=== PATIENT | female | born 2000 | race Caucasian/White ===

== ENCOUNTER 2023-04-05 15:51 | Outpatient (CLI) | payer OTHER, SELFPAY ==
[2023-04-05 15:59] LABS: Strep A Quick* Negative (Negative)
[2023-04-05 17:13] LABS: Strep A DNA Probe* NOT DETECTED (Not Detectd)
== END 2023-04-05 15:52 | disposition home or self-care (01) ==
PROVIDERS: Visit Provider Registered Nurse
DX: J02.9 Acute pharyngitis, unspecified (principal)
CPT/HCPCS: 87651

== ENCOUNTER 2023-04-10 03:49 | Day surgery (SDC) | payer OTHER, SELFPAY ==
[2023-04-10] VITALS (26 sets, daily range): BP systolic 91–114; BP diastolic 58–78; PULSE 78–101; RESP 14–20; TEMP 36.7–37.7; O2SAT 95–100; BMI 22.7
--- NOTE | 2023-04-10 03:59 | ED.GENADULT ---
HPI - General Adult General Chief complaint: Shortness of Breath/Dyspnea Stated complaint: [place]/Tonsilitis Time Seen by Provider: 04/10/23 03:59 History of Present Illness HPI narrative: Pt aox4, ABCs intact. Pt currently being treated with steroid for mono and tonsilitis. Patient states that she has been having difficulty breathing and swallowing since 0000 tonight. Patient states that she was advised to come to the ED if her Uvula got enlarged or went off to one side as well as if her throat swelling got worse. 22-year-old woman presenting to the emergency department with concern of worsening throat pain and swelling. Had for symptoms of what was ultimately diagnosed as mononucleosis and tonsillitis beginning almost 3 weeks ago. Five days ago started to have some throat pain. Seen 3 days ago and initiated on 20 mg daily of prednisone. Seen a day ago and prescribed Tylenol with codeine. She has not had any fever. Pain is definitely worse from yesterday to today. She had called in was advised apparently if she had uvular deviation to be seen. She is unsure which way her uvula was pointing. Definitely hurts to open her mouth she says and ?can not swallow?; this is referring to water even. She has not been having any sensation of abdominal fullness or pain. Related Data Home Medications Medication Instructions Recorded Confirmed albuterol sulfate 90 mcg/actuation 1 inh inhalation Q4-6H PRN 04/05/23 04/09/23 breath activated powder inhaler cetirizine 10 mg tablet (Zyrtec) 10 mg PO QDAY PRN 04/05/23 04/09/23 drospirenone 3 mg-ethinyl 1 tab PO DAILY 04/05/23 04/09/23 estradiol 0.02 mg tablet (STEVE (28)) Previous Rx's Medication Instructions Recorded prednisone 20 mg tablet 20 mg PO QDAY 5 days #5 tabs 04/07/23 acetaminophen 300 mg-codeine 30 mg 1 tab PO Q8H PRN pain #10 tabs 04/09/23 tablet Allergies Allergy/AdvReac Type Severity Reaction Status Date / Time No Known Drug Allergies Allergy Verified 04/09/23 14:21 Review of Systems Status of ROS: Reports: 6 or more systems reviewed and unremarkable except as noted in History and below [facility] Medical History Infectious mononucleosis ?B27.90 - Infectious mononucleosis, unspecified without complication (ICD-10) Social History Smoking Status: Never smoker Do you use any of these nicotine containing products: None How often do you have a drink containing alcohol: monthly or less AUDIT-C Alcohol total score: 1 Non-prescribed substance use: denies use Exam Narrative: Exam Narrative: Slim. Looks pale. Skin otherwise warm and dry without rash. Breathing easily. Demonstrating trismus in conversation. I do not hear any stridor. Lungs appear to be clear. Oropharynx is moist. There is moderate tonsillar enlargement/edema on the right more so than the left. Uvula was touching at times the right tonsil. She is able to manage her secretions. I do not appreciate much in the way of anterior cervical lymphadenopathy. Fullness in the right upper anterior cervical chain more so on the right than the left. There is some posterior chain lymphadenopathy on the right more so than the left. Heart in regular rate and rhythm without murmur rub or gallop. Abdomen is soft nontender no HSM. Well-perfused peripherally without edema. Const: Vital Signs, click to edit/add: Vital Signs - 24 hr 04/10/23 03:57 04/10/23 04:02 04/10/23 04:15 Temperature 99.9 F H Pulse Rate 78 84 Pulse Rate [Pulse Oximeter] 87 Respiratory Rate 20 Blood Pressure [Ri ght Upper Arm] 91/58 L Pulse Oximetry 98 98 100 Oxygen Delivery Me thod Room Air 04/10/23 04:30 04/10/23 04:51 04/10/23 05:00 Temperature Pulse Rate 87 99 91 Pulse Rate [Pulse Oximeter] Respiratory Rate Blood Pressure [Ri ght Upper Arm] Pulse Oximetry 98 98 98 Oxygen Delivery Me thod 04/10/23 05:15 04/10/23 05:30 Temperature Pulse Rate 101 H 91 Pulse Rate [Pulse Oximeter] Respiratory Rate Blood Pressure [Ri ght Upper Arm] Pulse Oximetry 97 97 Oxygen Delivery Me thod Documenting provider has reviewed patient's vital signs: yes Course Vital Signs Vital signs: Initial Vital Signs Temperature 99.9 F H 04/10/23 03:57 Temperature Source Temporal Artery Scan 04/10/23 03:57 Pulse Rate 87 10/04/23 03:57 Respiratory Rate 20 04/10/23 03:57 Blood Pressure 91/58 L 04/10/23 03:57 Blood Pressure Mean 69 L 04/10/23 03:57 Pulse Oximetry 98 04/10/23 03:57 Oxygen Delivery Method Room Air 04/10/23 03:57 Vital Signs Temperature 99.9 F H 04/10/23 03:57 Pulse Rate 87 04/10/23 03:57 Respiratory Rate 20 04/10/23 03:57 Blood Pressure 91/58 L 04/10/23 03:57 Pulse Oximetry 98 04/10/23 03:57 Oxygen Delivery Method Room Air 04/10/23 03:57 Temperature 99.9 F H 04/10/23 03:57 Pulse Rate 91 04/10/23 05:30 Respiratory Rate 20 04/10/23 03:57 Blood Pressure 91/58 L 04/10/23 03:57 Pulse Oximetry 97 04/10/23 05:30 Oxygen Delivery Method Room Air 04/10/23 03:57 Medical Decision Making MDM Narrative Medical decision making narrative: I see a tonsillitis here certainly. Patti tells me that the swelling has been present consistently as is on this right side. More impressive I think is the trismus. She may have evolving phlegmonous tissue though based on appearance I think less likely rey abscess at this point; however trismus is concerning. This is her 3rd visit now and she is describing worsening symptoms; will also image with CT scan. Surely she is dehydrated to some degree. IV will be placed and will receive a L of normal saline as well hydrate secondary to contrast. If there is abscess or other requiring intervention would need to have some blood work so we will check this as well. Ketorolac and Solu-Medrol. CT scan by my read shows a couple of cm of rim enhancing fluid collection consistent with evolving abscess in the peritonsillar area adjacent to the right tonsil. There also appears to be some phlegmonous change within the tonsil. Radiology over-read as below TECHNIQUE: CT soft tissue of the neck was acquired with 95 mL Isovue 370 IV contrast. COMPARISON: None. PRELIMINARY FINDINGS: Skull base: Unremarkable. Pharynx/Larynx/Trachea: 1.9 cm (series 5; image 52) rim enhancing hypodensity (24 HU on 3; 16) lateral right peritonsillar abscess. Bilateral tonsillar enlargement and heterogeneous enhancement consistent with tonsillitis. Associated bilateral proximal deep cervical chain (level IIa/b) lymphadenopathy. Prominent bilateral lateral pharyngeal lymph nodes. The right internal jugular vein is patent. Epiglottis is normal. Airway is patent. Adjacent soft tissues are normal. Salivary glands: Unremarkable. Thyroid gland: Unremarkable. No significant nodules. Lymph nodes: No lymphadenopathy. Vessels: Unremarkable for age. Bones: Unremarkable for age. Misc: No inflammation, mass or fluid collection. Lung apices: Unremarkable. PRELIMINARY IMPRESSION: 1. Right 1.9 cm lateral peritonsillar abscess. 2. Bilateral tonsillitis with associated regional lymphadenopathy. ENT consultation is suggested. Final report to follow. On reassessment Patti appears to be doing better. Seems more comfortable and color has improved. I would anticipate consultation with ENT shortly. Will be initiating clindamycin iv. Likely going direct from ER to same-day surgery Lab Data Lab results reviewed: Yes I reviewed the patient's lab results Labs: Lab Results 04/10/23 Range/Units 04:10 WBC 11.36 H (4.50-11.00) K/uL RBC 3.54 L (4.00-5.20) m/uL Hgb 10.9 L (12.0-16.0) gm/dL Hct 31.7 L (33.0-51.0) % MCV 90 (80-100) fL MCH 31 (26-34) pg MCHC 34 (32-36) gm/dL RDW Coeff of Smooth 11.8 (11.5-15.5) % Plt Count 271 (140-440) K/uL Neut % (Auto) 46.0 (42.0-72.0) % Lymph % (Auto) 46.4 H (20-44) % [place] % (Auto) 7.1 (0.0-11.0) % Eos % (Auto) 0.2 (0.0-7.0) % Baso % (Auto) 0.2 (0.0-3.0) % Neut # (Auto) 5.20 (1.7-7.0) K/uL Lymph # (Auto) 5.30 H (0.90-2.90) K/uL [place] # (Auto) 0.80 (0.00-0.90) K/UL Eos # (Auto) 0.00 (0.00-0.50) K/uL Baso # (Auto) 0.00 (0.00-0.30) K/uL Abs Immat Gran (auto) 0.00 (0.00-0.30) K/uL Imm/Tot Granulo (auto) 0.1 % Sodium 137 (135-149) mmol/L Potassium 3.6 (3.6-5.1) mmol/L Chloride 106 (96-114) mmol/L Carbon Dioxide 21 (20-32) mmol/L Anion Gap 10 (7-15) mEq/L BUN 14 (5-24) mg/dL Creatinine 0.9 (0.5-1.5) mg/dL Estimated Creat Clear 75.24 Estimated GFR 94 ml/min Glucose 105 (60-115) mg/dL Calcium 8.5 (8.4-10.6) mg/dL Total Bilirubin 0.6 (0.1-1.5) mg/dL Direct Bilirubin 0.0 (0.0-0.5) mg/dL AST 34 (12-35) U/L ALT 32 (4-35) U/L Alkaline Phosphatase 69 (40-150) U/L C-Reactive Protein 4.2 H (0.5-1.0) mg/dL Total Protein 6.7 (6.0-8.3) g/dL Albumin 3.5 (3.3-5.0) g/dL Discharge Plan Discharge Clinical Impression: Peritonsillar abscess, Mononucleosis Patient Disposition: Admitted As Observation Condition: Improved
--- NOTE | 2023-04-10 04:09 | CRLHL7_ITS ---
For Patients: As a result of the Century Cures Act, medical imaging exams and procedure reports are released immediately into your electronic medical record. You may view this report before your referring provider. If you have questions, please contact your health care provider. INDICATION: Tonsillitis, trismus, concern of abscess right side TECHNIQUE: CT of the neck with 95 ml iodinated contrast agent. Coronal and sagittal reconstructions are included. COMPARISON: No FINDINGS: There is diffuse enlargement and striated enhancement pattern in the bilateral palatine tonsils with mild transverse narrowing of the oropharyngeal airway. There is a 1.9 x 0.9 x 1.6 centimeter rim enhancing collection along the lateral margin of the right palatine tonsil compatible with peritonsillar abscess. Moderate enlargement and enhancement of several level 2 lymph nodes compatible with reactive adenopathy. The oral cavity, nasopharyngeal, oropharyngeal and hypopharyngeal mucosal spaces are normal. The supraglottic, glottic and infraglottic larynx are unremarkable. The airway including the trachea is normal and is patent. The parotid glands, submandibular and sublingual glands are normal in appearance. The thyroid gland is normal in appearance. The vascular structures opacify normally with contrast material. Moderate polypoid mucosal thickening in the right maxillary sinus. Incomplete segmentation of the C3-4 vertebra. No suspicious lytic or blastic osseous lesions. Visualized paranasal sinuses and mastoid air cells are clear. Supraclavicular regions, mediastinum and soft tissues of the imaged chest wall are unremarkable. Visualized portions of the upper lungs are clear. IMPRESSION: 1. Bilateral acute palatine tonsillitis with mild transverse narrowing of the oropharyngeal airway. 2. 1.9 cm right peritonsillar abscess. 3. Moderate enlargement and enhancement of several level 2 lymph nodes compatible with reactive adenopathy. Please note that all CT scans at this facility use dose modulation, iterative reconstruction, and/or weight-based dosing when appropriate to reduce radiation dose to as low as reasonably achievable. Dictated by Sammy Austin MD @ 04/10/2023 7:43:42 AM (Electronically Signed)
[2023-04-10] MEDS: 0.9 % SODIUM CHLORIDE 1000 ml 1,000 ML 2000 ML IV (04:16)
[2023-04-10] MEDS: KETOROLAC 30 MG/ML inj IVP (04:17)
[2023-04-10 04:20] LABS: Basophils Percent Auto 0.2 % (0.0-3.0); Eosinophils Percent Auto 0.2 % (0.0-7.0); Hematocrit 31.7 % (33.0-51.0); Hemoglobin* 10.9 gm/dL (12.0-16.0); Immature Granulocytes Pct Auto 0.1 %; Lymphocytes Percent Auto 46.4 % (20-44); Mean Corpuscular HGB Conc 34 gm/dL (32-36); Mean Corpuscular Hemoglobin 31 pg (26-34); Mean Corpuscular Volume 90 fL (80-100); Monocytes Percent Auto 7.1 % (0.0-11.0); Platelet Count* 271 K/uL (140-440); RDW Coefficient of Variation % 11.8 % (11.5-15.5); Red Blood Count 3.54 m/uL (4.00-5.20); White Blood Count* 11.36 K/uL (4.50-11.00)
[2023-04-10 04:22] LABS: Slide Review Reflex No
[2023-04-10] MEDS: METHYLPREDNISOLONE SOD SUCC 40 MG/ML 80 MG IVP (04:22)
[2023-04-10 04:33] LABS: Albumin* 3.5 g/dL (3.3-5.0)
[2023-04-10 04:34] LABS: Chloride* 106 mmol/L (96-114); Potassium* 3.6 mmol/L (3.6-5.1); Sodium* 137 mmol/L (135-149)
[2023-04-10 04:36] LABS: Anion Gap 10 mEq/L (7-15); Bilirubin Total* 0.6 mg/dL (0.1-1.5); Carbon Dioxide* 21 mmol/L (20-32); Creatinine* 0.9 mg/dL (0.5-1.5); Est. Creatinine Clearance* 75.24; Estimated Glomerular Filt Rate 94 ml/min
[2023-04-10 04:37] LABS: Alanine Aminotransferase* 32 U/L (4-35); Alkaline Phosphatase* 69 U/L (40-150); Aspartate Amino Transferase* 34 U/L (12-35); Blood Urea Nitrogen* 14 mg/dL (5-24); Calcium* 8.5 mg/dL (8.4-10.6); Glucose* 105 mg/dL (60-115); Total Protein* 6.7 g/dL (6.0-8.3)
[2023-04-10 04:41] LABS: C Reactive Protein* 4.2 mg/dL (0.5-1.0)
[2023-04-10] MEDS: NON-FORMULARY MEDICATION 900 EACH IV (06:26)
--- NOTE | 2023-04-10 07:27 | W.ANESCHARGE ---
Anesthesia Charges Start Date/Time Anesthesia Start Date: 04/10/23 Anesthesia Start Time: 07:34 Stop Date/Time Anesthesia Stop Date: 04/10/23 Anesthesia Stop Time: 08:08 Summary Emergency: MDA
--- NOTE | 2023-04-10 07:30 | W.PM.ENTPROC ---
Procedure Note Date of procedure: 04/10/23 Procedure: Preop diagnosis large right peritonsillar abscess, small early abscess formation on left peritonsillar space Postoperative diagnosis same Procedure incision drainage right and left peritonsillar abscesses Under general endotracheal anesthesia patient was prepped and draped in usual fashion. The McIvor mouth gag was inserted the tongue retracted forward. An incision was made with needlepoint cautery along the lateral superior right tip peritonsillar space. The tonsillar capsule was exposed and then blunt dissection was used to enter the abscess cavity from above. A moderate amount of purulent fluid was aspirated with suction. The cavity was then copiously irrigated with normal saline. A small incision was made with a needlepoint cautery on the left lateral to peritonsillar area. Blunt dissection was then used to enter a very small 1 cm diameter abscess cavity. This was then copiously irrigated after the pus was aspirated. Culture was taken from the right abscess and sent for all cultures and sensitivities. The patient procedure well. The Coblation was used to control any mucosal bleeding. She was extubated in the operating room taken recovery in satisfactory condition. Blood loss during procedure less than 5 mL.
--- NOTE | 2023-04-10 07:31 | P.ENTCN_ITS ---
HPI- ENT Consult Date of Consult Date Seen: 04/10/23 Consult date: 04/10/23 Primary Care Provider: Not a Local Provider Consult Narrative Reason for consult: Right peritonsillar abscess Narrative: Patti Singletary is a 22 year old female being treated with steroid for mono but no antibiotics. Has 5 day history of increasing sore throat on the right side. Came into the ER with trismus and odynophagia and dysphagia. White count elevated no airway distress Review of Systems Status of ROS: Reports: 6 or more systems reviewed and unremarkable except as noted in History and below [facility] Medical History Infectious mononucleosis ?B27.90 - Infectious mononucleosis, unspecified without complication (ICD-10) Social History Smoking Status: Never smoker Do you use any of these nicotine containing products: None How often do you have a drink containing alcohol: monthly or less AUDIT-C Alcohol total score: 1 Non-prescribed substance use: denies use Meds Home Medications and Allergies Home Medications Medication Instructions Recorded Confirmed Type albuterol sulfate 90 mcg/actuation 1 inh inhalation Q4-6H PRN 04/05/23 04/09/23 History breath activated powder inhaler cetirizine 10 mg tablet (Zyrtec) 10 mg PO QDAY PRN 04/05/23 04/09/23 History drospirenone 3 mg-ethinyl 1 tab PO DAILY 04/05/23 04/09/23 History estradiol 0.02 mg tablet (STEVE (28)) Allergies Allergy/AdvReac Type Severity Reaction Status Date / Time No Known Drug Allergies Allergy Verified 04/09/23 14:21 Exam Narrative: Exam Narrative: General skin neuro respiratory gait peripheral vascular vocal quality skin of head neck are all negative except bilateral enlarged tonsils with inflammation airway fine Const: Vital Signs, click to edit/add: Vital Signs - 24 hr 04/10/23 03:57 04/10/23 04:02 04/10/23 04:15 Temperature 99.9 F H Pulse Rate 78 84 Pulse Rate [Pulse Oximeter] 87 Respiratory Rate 20 Blood Pressure Blood Pressure [Ri ght Upper Arm] 91/58 L Pulse Oximetry 98 98 100 Oxygen Delivery Me thod Room Air 04/10/23 04:30 04/10/23 04:51 04/10/23 05:00 Temperature Pulse Rate 87 99 91 Pulse Rate [Pulse Oximeter] Respiratory Rate Blood Pressure Blood Pressure [Ri ght Upper Arm] Pulse Oximetry 98 98 98 Oxygen Delivery Me thod 04/10/23 05:15 04/10/23 05:30 04/10/23 05:45 Temperature Pulse Rate 101 H 91 95 Pulse Rate [Pulse Oximeter] Respiratory Rate Blood Pressure Blood Pressure [Ri ght Upper Arm] Pulse Oximetry 97 97 97 Oxygen Delivery Me thod 04/10/23 06:00 04/10/23 06:15 04/10/23 06:30 Temperature Pulse Rate 84 95 90 Pulse Rate [Pulse Oximeter] Respiratory Rate Blood Pressure Blood Pressure [Ri ght Upper Arm] Pulse Oximetry 97 98 96 Oxygen Delivery Me thod 04/10/23 06:45 04/10/23 07:00 04/10/23 07:06 Temperature Pulse Rate 91 86 93 Pulse Rate [Pulse Oximeter] Respiratory Rate Blood Pressure 105/61 Blood Pressure [Ri ght Upper Arm] Pulse Oximetry 98 97 96 Oxygen Delivery Me thod 04/10/23 07:11 Temperature Pulse Rate Pulse Rate [Pulse Oximeter] Respiratory Rate Blood Pressure Blood Pressure [Ri ght Upper Arm] 105/61 Pulse Oximetry Oxygen Delivery Me thod ENT-CN: Result Labs Labs: Short CBC 04/10/23 Range/Units 04:10 WBC 11.36 H (4.50-11.00) K/uL Hgb 10.9 L (12.0-16.0) gm/dL Hct 31.7 L (33.0-51.0) % Plt Count 271 (140-440) K/uL BMP 04/10/23 04:10 Sodium 137 Potassium 3.6 Chloride 106 Carbon Dioxide 21 BUN 14 Creatinine 0.9 Glucose 105 Calcium 8.5 Liver Function 04/10/23 Range/Units 04:10 Total Bilirubin 0.6 (0.1-1.5) mg/dL Direct Bilirubin 0.0 (0.0-0.5) mg/dL AST 34 (12-35) U/L ALT 32 (4-35) U/L Alkaline Phosphatase 69 (40-150) U/L Albumin 3.5 (3.3-5.0) g/dL Assessment and Plan Assessment and plan (1) Peritonsillar abscess: Status: Acute (2) Mononucleosis: Status: Acute Plan CT images reviewed right peritonsillar abscess early phlegmon left. There may also be a right intra tonsillar abscess. Impression right kai and possibly intra tonsillar abscess, left early peritonsillar abscess reviewed findings with patient discussed options of observation versus incision drainage. I would favor incision drainage risks including anesthesia bleeding recurrence etc. were all reviewed. Unfortunately she was given Toradol in the ED so bleeding risk is higher. She understands wishes to proceed will schedule
--- NOTE | 2023-04-10 08:12 | W.ANESCHARGE ---
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
[2023-04-10] MEDS: IBUPROFEN 100 MG/5 ML SUSP 200 MG PO (08:38)
[2023-04-10] MEDS: ACETAMINOPHEN 160 MG/5 ML CUP 320 MG PO (08:38)
[2023-04-10] MEDS: CLINDAMYCIN 150 MG CAPSULE PO (08:53)
== END 2023-04-10 11:00 | disposition home or self-care (01) ==
LOC: ED 07:18 → OR 07:34
PROVIDERS: Emergency Provider Family Medicine; Visit Provider Otolaryngology
PROC: 0C9PXZZ Drainage of Tonsils, External Approach (ICD-10-PCS; CPT 42700; principal; 2023-04-10 07:30)
DX: J36 Peritonsillar abscess (principal); B27.99 Infectious mononucleosis, unspecified with other complication; R13.10 Dysphagia, unspecified
CPT/HCPCS: 42700; 00170; 36415; 70491; 80048; 80076; 85025; 86140; 87070; 87075; 87205; 99140; 99284; A9270; J1100; J1885; J2405; J2704; J2920; J3010; J7030; Q9967; S0077

== ENCOUNTER 2023-09-04 08:38 | Outpatient (RCR) | payer OTHER, SELFPAY ==
[2023-09-04 08:56] LABS: Ur HCG Qualitative* Negative (Negative)
== END 2024-08-08 08:08 | disposition home or self-care (01) ==
LOC: LAB 08:38
PROVIDERS: Visit Provider Physician Assistant
DX: L70.0 Acne vulgaris (principal)
CPT/HCPCS: 81025

== ENCOUNTER 2024-03-16 13:12 | Outpatient (CLI) | payer OTHER, SELFPAY ==
--- OUTSIDE RECORDS SUMMARY | 2024-03-16 13:16 | XMS_ITS | Referral Summary ---
Author Organization [facility] Address [id number] [place] [id number] Phone Care Team Providers Care Subcontract Manager Name Role Phone Russell Limon M.D. Primary Care Provider Source Comments [place], [place] is fully implemented on [place]. [facility] Social History Tobacco Use Types Packs/Day Years Used Date Smoking Tobacco: Never Assessed Community Connections Answer Date Recor ded Caregiver PCP help Not on file 01/08/2019 Child PCP help Not on file 01/08/2019 Potential social isolation Yes 01/08 Appointment help Not on file 01/08/2019 Benefits help needed: Not on file 01/08/2019 Education concerns Yes 01/08/2019 Tobacco Use Answer Date Recorded Tobacco: Caregiver Use Not on file 9 Tobacco- Patient Use: 01/08/2019 Sex and Gender Information Value Date Recorded Sex Assigned at Not on file Gender Identity Not on file Sexual Orientation Not on file Plan of Treatment Not on file Care Teams Subcontract Manager Relationship Specialty Start Date End Date Russell Limon M.D. PCP - General General Pediatrics 05/11/13
--- OUTSIDE RECORDS SUMMARY | 2024-03-16 13:16 | XMS_ITS | Clinical Summary ---
Author Organization [facility] Address [address] [place] [id number] Phone Care Team Providers Care Granite Polisher Name Role Phone Russell Limon M.D. Primary Care Provider Source Comments [place], [place] is fully implemented on [employer]. [facility] Social History Tobacco Use Types Packs/Day Years [...] of Treatment Not on file Care Teams Granite Polisher Relationship Specialty Start Date End Date Russell Limon M.D. PCP - General General Pediatrics 05/11/13
--- OUTSIDE RECORDS SUMMARY | 2024-03-16 13:16 | XMS_ITS | Clinical Summary ---
Author Organization [facility] Address [place] [address] Care Team Providers Care Butcher Fish Name Role Phone Dhara Gutierres MD Primary Care Provider [phone] Allergies Active Allergy Reactions Criticality Noted Date Comments Cat Dander Hives 10/14/2021 Dog Dander Hives 10/14/2021 Medications Medication Sig Dispensed Refills Start Date End Date Status EPINEPHrine (EPIPEN) 0.3 mg/0.3 mL auto-injector 10/19/2021 Active Mikayla, 28, 3-0.02 mg tablet 01/29/2022 Active fluticasone propion-salmeteroL (Advair Diskus) 100-50 mcg/dose diskus inhaler 1 PUFF(S) INHALATION TWO TIMES A DAY 03/17/2021 Active cetirizine (Aller-Karoline) 10 mg tablet Take 1 Tablet (10 mg) by mouth once daily. 0 04/30/2022 Active Active Problems Problem Noted Date Diagnosed Date Environmental allergies 03/13/2022 Mild intermittent asthma without complication Acne vulgaris 03/13/2022 Encounters Date Type Department Care Team Description 03/12/2024 Travel from Last 3 Months Immunizations Name Administration Dates Next Due COVID-19 vaccine (Moderna Edmundo freida 50mcg/0.25mL) PF MDV 06/19/2021 COVID-19 vaccine (Pfizer-BioNTech 30mcg/0.3mL) P F, MDV 11/06/2020,10/15/2020 Influenza, IIV4 04/18/2022 Family History Medical History Relation Name Comments No Known Problems Father No Known Problems Mother Relation Name Status Comments Father Mother Social History Tobacco Use Types Packs/Day Years Used Date Smoking Tobacco: Never Smokeless Tobacco: Never Tobacco Cessation:Counseling Given: Yes Alcohol Use Standard Drinks/Week Comments Never 0 (1 standard drink = 0.6 oz pur e alcohol) Social Connections Answer Date Recorded Frequency of Communication with Friends and Fami ly Not on file 03/09/2022 Sex and Gender Information Value Date Recorded Sex Assigned at Not on file Gender Identity Not on file Sexual Orientation Not on file Obstetrics History Last Filed Vital Signs Vital Sign Reading Time Taken Comments Blood Pressure 92/60 05/06/2023 7:56 AM CDT Pulse 71 05/06/2023 7:56 AM CDT Temperature 36.3 ??C (97.4 ??F) 05/06/2023 7:56 AM CD T Respiratory Rate - - Oxygen Saturation 100% 05/06/2023 7:56 AM CDT Inhaled Oxygen Concentration - - Weight 53.2 kg (117 lb 3.2 oz) 05/06/2023 7:56 A M CDT Height 156.2 cm (5' 1.5) 05/06/2023 7:56 AM CDT Body Mass Index 21.79 05/06/2023 7:56 AM CDT Plan of Treatment Upcoming Encounters Date Type Department Care Team (Late st Contact Info) Description 03/26/2024 2:45 PM CDT Nurse/Clinic Staff Only [facility] [address] [place] [address] 04/02/2024 11:15 AM CDT Nurse/Clinic Staff Only [facility] [address] [place] [address] Health Maintenance Due Date Last Done Comments Tdap 2013 Depression screening for age 12+ 2014 HIV for age 15-65 2017 HPV series for age 9-26 (1 - 3-dose series) 2017 Hepatitis C screening for age 18-79 2020 Tetanus booster 2022 Pap test for age 21-65 12/28/2023 COVID-19 vaccine series ( season) 2024 04/18/2022, 06/19/2021, 11/06/2020, Additional history exists Influenza for age 9-49 03/08/2024 04/18/2022 BMI (ht and wt on same day) for age 18+ 05/06/2024 05/06/2023, 03/09/2022 Meningococcal series for age 11-21 Aged Out No longer eligible based on patient's age to complete this topic Pneumococcal series for age 6-64 Aged Out No longer eligible based on patient's age to complete this topic Care Teams Butcher Fish Relationship Specialty Start Date End Date Dhara Gutierres MD [address] [place] [address] PCP - General Family Practice 03/09/22
[2024-03-16 13:41] LABS: Ur HCG Qualitative* Negative (Negative)
== END 2024-03-16 13:13 | disposition home or self-care (01) ==
PROVIDERS: Visit Provider Physician Assistant
DX: Z79.899 Other long term (current) drug therapy (principal)
CPT/HCPCS: 81025

== ENCOUNTER 2024-10-14 12:58 | Outpatient (CLI) | payer OTHER, SELFPAY ==
[2024-10-14 13:25] LABS: Ur HCG Qualitative* Negative (Negative)
== END 2024-10-14 12:59 | disposition home or self-care (01) ==
PROVIDERS: Visit Provider Dermatology
DX: Z32.02 Encounter for pregnancy test, result negative (principal); L70.0 Acne vulgaris; Z79.899 Other long term (current) drug therapy
CPT/HCPCS: 81025